=== PATIENT | female | born 1970 | race Caucasian/White ===

== ENCOUNTER 2019-05-02 12:16 | Emergency (ER) | payer MEDICAID ==
[2019-05-02] MEDS ORDERED: Ketorolac 30 MG/ML SDV IM ONE (13:07)
[2019-05-02] MEDS ORDERED: Orphenadrine 100 MG Tab.ER PO ONE (13:07)
--- NOTE | 2019-05-02 13:12 | EDM.PDOC ---
ED HPI GENERAL MEDICAL PROBLEM - General Chief Complaint: Back Pain or Injury Stated Complaint: BACK PAIN Time Seen by Provider: 05/02/19 12:31 Source of Information: Reports: Patient, RN Notes Reviewed History Limitations: Reports: No Limitations - History of Present Illness INITIAL COMMENTS - FREE TEXT/NARRATIVE: Patient is a 48-year-old female who presents to the ED for the evaluation of a lower back injury. The patient notes a prior history of multiple sclerosis and fibromyalgia, so she states she has pain most often all the time. She states shortly prior to arrival that she stepped in some mud, and went to step up on the sidewalk and ended up slipping on the sidewalk due to the mud on her shoes. She states that she felt instant pain that jolted up the right side of her body. She states that a bystander said it looked as if she was doing the splits. The patient states that most of her pain now is into her right lower back just above her hip. She denies any history of chronic back pain. She would rate her pain at a 5 out of 10, and characterizes more as a dull/negative he type of pain. She did not take any type of pain medications to see if anything helped. The pain does not radiate down her leg at all, it stays right in her hip area. Middle Back Pain Score (Numeric/FACES): 8 - Related Data Allergies Allergy/AdvReac Type Severity Reaction Status Date / Time acetaminophen [From Vicodin] Allergy Chest Pain Verified 05/02/19 12:37 hydrocodone [From Vicodin] Allergy Chest Pain Verified 05/02/19 12:37 Home Meds: Home Meds Gabapentin [Neurontin] 300 mg PO DAILY 05/02/19 [History] Insulin Glarg,Human.Rec.Analog [Lantus] 0 unit SUBCUT DAILY 05/02/19 [History] Orphenadrine [Norflex] 100 mg PO BID PRN #20 tab 05/02/19 [Rx] atorvaSTATin [Lipitor] 10 mg PO BEDTIME 05/02/19 [History] metFORMIN [Glucophage XR] 500 mg PO BIDMEALS 05/02/19 [History] Past Medical History Cardiovascular History: Reports: High Cholesterol, Hypertension Musculoskeletal History: Reports: Fibromyalgia Neurological History: Reports: MS Endocrine/Metabolic History: Reports: Diabetes, Type II Social & Family History - Tobacco Use Smoking Status *Q: Current Every Day Smoker Years of Tobacco use: 40 Packs/Tins Daily: 0.5 - Recreational Drug Use Recreational Drug Use: No ED ROS GENERAL - Review of Systems Review Of Systems: See Below Constitutional: Reports: No Symptoms HEENT: Reports: No Symptoms Respiratory: Reports: No Symptoms Cardiovascular: Reports: No Symptoms Endocrine: Reports: No Symptoms GI/Abdominal: Reports: No Symptoms : Reports: No Symptoms Musculoskeletal: Reports: Back Pain (Right lower back, near hip) Skin: Reports: No Symptoms Neurological: Reports: No Symptoms Psychiatric: Reports: No Symptoms Hematologic/Lymphatic: Reports: No Symptoms Immunologic: Reports: No Symptoms ED EXAM,LOWER BACK PAIN/INJURY - Physical Exam Exam: See Below Exam Limited By: No Limitations General Appearance: Alert, WD/WN, No Apparent Distress Ears: Normal External Exam Nose: Normal Inspection Throat/Mouth: Normal Inspection, Normal Lips, Normal Teeth, Normal Gums, Normal Oropharynx, Normal Voice, No Airway Compromise Head: Atraumatic, Normocephalic Neck: Normal Inspection, Supple, Non-Tender, Full Range of Motion Respiratory/Chest: No Respiratory Distress, Lungs Clear, Normal Breath Sounds, No Accessory Muscle Use, Chest Non-Tender Cardiovascular: Normal Peripheral Pulses, Regular Rate, Rhythm, No Murmur Back Exam: Normal Inspection, Muscle Spasm (Right lower back, just above iliac crest) Extremities: Normal Inspection, Normal Range of Motion, Normal Capillary Refill Neurological: Alert, Normal Mood/Affect, Normal Dorsiflexion, Normal Plantar Flexion, Normal Gait, Oriented x 3 Psychiatric: Normal Affect, Normal Mood Skin Exam: Warm, Dry, Intact, Normal Color, No Rash Course - Vital Signs Last Recorded V/S: Last Vital Signs Temp 98.8 F 05/02/19 12:35 Pulse 92 05/02/19 12:35 Resp 16 05/02/19 12:35 BP 155/96 H 05/02/19 12:35 Pulse Ox 97 05/02/19 12:35 - Orders/Labs/Meds Meds: Medications Discontinued Medications Generic Name Dose Route Start Last Admin Trade Name Freq PRN Reason Stop Dose Admin Ketorolac Tromethamine 30 mg 05/02/19 13:07 05/02/19 13:14 Toradol IM 05/02/19 13:08 30 mg ONETIME ONE Administration Orphenadrine Citrate 100 mg 05/02/19 13:07 05/02/19 13:14 Norflex PO 05/02/19 13:08 100 mg ONETIME ONE Administration - Re-Assessments/Exams Free Text/Narrative Re-Assessment/Exam: 05/02/19 13:12 Patient presents to the ED for the evaluation of a back injury. Have ordered 30 mg IM Toradol, and 100 mg PO Norflex for initial management, I did offer to do an x-ray to make sure there was no further musculoskeletal injury, however the patient declined at this time. 05/02/19 13:47 Patient was reassessed at bedside, and states that she feels much better. She has got more range of motion movement after the Norflex and Toradol. We'll discharge home with general recommendations and a prescription for a few tablets of Norflex. Departure - Departure Time of Disposition: 13:48 Disposition: Home, Self-Care 01 Condition: Fair Clinical Impression: Lower back pain Qualifiers: Chronicity: acute Back pain laterality: right Sciatica presence: without sciatica Qualified Code(s): M54.5 - Low back pain - Discharge Information *PRESCRIPTION DRUG MONITORING PROGRAM REVIEWED*: No *COPY OF PRESCRIPTION DRUG MONITORING REPORT IN PATIENT SUNNY: No Prescriptions: Orphenadrine [Norflex] 100 mg PO BID PRN #20 tab PRN Reason: Spasms Instructions: Muscle Strain, [id number] Referrals: Cyndie Jones MD [Primary Care Provider] - Forms: ED Department Discharge Additional Instructions: You have been evaluated in the ED for your right sided back pain. Please use ice/heat as tolerated to the affected area. You may take tylenol 500 mg or ibuprofen 600mg q6 hrs for pain relief. Please do so until you have a tolerable level of pain with activity. Do not exceed 4000mg tylenol, Do not exceed 3200mg ibuprofen in a 24 hour time period. You have been given a prescription for Norflex, a muscle relaxer, please take 1 tab by mouth Q12 hours as needed for muscle spasms. This has been electronically sent to the [facility] located near [facility]. Please return to ED if your symptoms should change or worsen.
== END 2019-05-02 13:59 | disposition home or self-care (01) ==
LOC: JD.ED 12:16
DX: M54.5 Low back pain (principal); E78.00 Pure hypercholesterolemia, unspecified; I10 Essential (primary) hypertension; E11.9 Type 2 diabetes mellitus without complications; F17.210 Nicotine dependence, cigarettes, uncomplicated; Z88.5 Allergy status to narcotic agent; Z88.8 Allergy status to other drugs, medicaments and biological substances; Z79.899 Other long term (current) drug therapy; Z79.4 Long term (current) use of insulin
CPT/HCPCS: 96372; 99283; A9270; J1885

== ENCOUNTER 2019-07-19 20:39 | Emergency (ER) | payer MEDICAID ==
--- NOTE | 2019-07-19 22:51 | EDM.PDOC ---
ED HPI GENERAL MEDICAL PROBLEM - General Chief Complaint: Lower Extremity Injury/Pain Stated Complaint: TOE REMOVED N RIGHT FOOT IN PAIN Time Seen by Provider: 07/19/19 22:14 Source of Information: Reports: Patient History Limitations: Reports: No Limitations - History of Present Illness INITIAL COMMENTS - FREE TEXT/NARRATIVE: Patient is a 48-year-old female diabetic who recently had her toenail resected this past by Dr. Chacon. There was no complications. Over the past 2 days patient has been using Percocet for pain management. Sunday the pain was controlled as well as today until approximately 1700 hrs. when she awoke from a nap. She describes the pain as a throbbing, sharp, pins/needle sensation. She's noticed some swelling to the adjacent toes and questions that the coband wrapped on the right great toe is too tight. There is no redness streaking up her foot. She's had no documented fever. Of note patient has been ambulating on the affected extremity as instructed by Dr. Chacon. No recent trauma or activity and precipitated worsening discomfort. Last took Percocet at 8:00 this evening. Right Toe-Hailux Pain Score (Numeric/FACES): 7 - Related Data Allergies Allergy/AdvReac Type Severity Reaction Status Date / Time acetaminophen [From Vicodin] Allergy Chest Pain Verified 06/08/19 16:25 hydrocodone [From Vicodin] Allergy Chest Pain Verified 06/08/19 16:25 Home Meds: Home Meds Gabapentin [Neurontin] 300 mg PO DAILY 05/02/19 [History] Insulin Glarg,Human.Rec.Analog [Lantus] 16 unit SUBCUT DAILY 05/02/19 [History] Orphenadrine [Norflex] 100 mg PO BID PRN #20 tab 05/02/19 [Rx] atorvaSTATin [Lipitor] 10 mg PO BEDTIME 05/02/19 [History] metFORMIN [Glucophage XR] 500 mg PO BIDMEALS 05/02/19 [History] oxyCODONE HCl/Acetaminophen [Percocet 5-325 mg Tablet] 1 tab PO Q6HR PRN [History] Past Medical History HEENT History: Reports: Impaired Vision Cardiovascular History: Reports: High Cholesterol, Hypertension 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: Reports: Asthma Musculoskeletal History: Reports: Fibromyalgia Neurological History: Reports: MS, Neuropathy, Peripheral Endocrine/Metabolic History: Reports: Diabetes, Type II - Infectious Disease History Infectious Disease History: Reports: Chicken Pox - Past Surgical History HEENT Surgical History: Reports: Tonsillectomy GI Surgical History: Reports: Appendectomy, Cholecystectomy Female Surgical History: Reports: Other (See Below) Other Female Surgeries/Procedures: uterine ablasion Social & Family History - Family History Family Medical History: Noncontributory - Tobacco Use Smoking Status *Q: Current Every Day Smoker Years of Tobacco use: 35 Packs/Tins Daily: 0.5 - Caffeine Use Caffeine Use: Reports: Coffee - Recreational Drug Use Recreational Drug Use: No Review of Systems - Review of Systems Review Of Systems: ROS reveals no pertinent complaints other than HPI. ED EXAM, GENERAL - Physical Exam Exam: See Below Exam Limited By: No Limitations General Appearance: Alert, WD/WN, No Apparent Distress Ears: Hearing Grossly Normal Nose: Normal Inspection Throat/Mouth: Normal Voice, No Airway Compromise Head: Atraumatic, Normocephalic Neck: Normal Inspection, Supple Respiratory/Chest: No Respiratory Distress, No Accessory Muscle Use Cardiovascular: Normal Peripheral Pulses, Regular Rate, Rhythm Peripheral Pulses: 2+: Posterior Tibial (L) Extremities: Other (Coban to the right great toe. Pain with palpation. Slight swelling noted to adjacent toes. No pain with flexion/extension of the great toe. No redness swelling to the foot. Dressing is dry. ) Neurological: Alert, Oriented, Normal Cognition, No Motor/Sensory Deficits Psychiatric: Normal Affect, Normal Mood Skin Exam: Warm, Dry, Intact, Normal Color Course - Vital Signs Last Recorded V/S: Last Vital Signs Temp 98 F 07/19/19 20:48 Pulse 75 07/19/19 20:48 Resp 25 H 07/19/19 20:48 BP 144/72 H 07/19/19 20:48 Pulse Ox 100 07/19/19 20:48 - Re-Assessments/Exams Free Text/Narrative Re-Assessment/Exam: Nursing staff will remove coban in hopes by doing so will resolve some of the patients pain. The dressing to the toenail will remain intact. Coban will be reapplied in looser fashion in hopes this will decrease her discomfort. 07/19/19 22:54 Reassessment, patient states the pain has drastically improved and tingling is gone with loosening coban. No concerns for infection present. She will be discharged home with instructions as documented. Return precautions discussed with the patient. Departure - Departure Time of Disposition: 22:55 Disposition: Home, Self-Care 01 Condition: Good Clinical Impression: Pain around toenail, right foot - Discharge Information Referrals: Gary Chacon II, TINA [Physician] - Forms: ED Department Discharge Additional Instructions: Coban dressing was loosened which eliminated the tingling to the toe and decreased the pain to the toe. Please elevate when able to reduce any swelling and pain. Continue to follow instructions provided to you by Dr. Chacon. Continue taking the Percocet as prescribed. Do not drive while taking the percocet. Return to the ED for any new or worsening symptoms.
== END 2019-07-19 23:10 | disposition home or self-care (01) ==
LOC: JD.ED 20:39
DX: M79.674 Pain in right toe(s) (principal); M79.671 Pain in right foot; E11.40 Type 2 diabetes mellitus with diabetic neuropathy, unspecified; I10 Essential (primary) hypertension; E78.00 Pure hypercholesterolemia, unspecified; F17.210 Nicotine dependence, cigarettes, uncomplicated; Z88.8 Allergy status to other drugs, medicaments and biological substances; Z79.4 Long term (current) use of insulin; Z90.49 Acquired absence of other specified parts of digestive tract; Z98.890 Other specified postprocedural states
CPT/HCPCS: 99283

== ENCOUNTER 2019-07-29 18:48 | Emergency (ER) | payer MEDICAID ==
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
== END 2019-07-29 20:06 | disposition home or self-care (01) ==
LOC: JD.ED 18:48
DX: J70.5 Respiratory conditions due to smoke inhalation (principal); I10 Essential (primary) hypertension; E11.42 Type 2 diabetes mellitus with diabetic polyneuropathy; E78.00 Pure hypercholesterolemia, unspecified; J45.909 Unspecified asthma, uncomplicated; E66.9 Obesity, unspecified; Z68.32 Body mass index [BMI] 32.0-32.9, adult; F17.210 Nicotine dependence, cigarettes, uncomplicated; Z88.6 Allergy status to analgesic agent; Z79.4 Long term (current) use of insulin; Z79.899 Other long term (current) drug therapy
CPT/HCPCS: 99282; 99284

== ENCOUNTER 2019-09-22 18:01 | Emergency (ER) | payer MEDICAID ==
[2019-09-22] MEDS ORDERED: HYDROmorphone 0.5 MG/0.5 ML Syringe IVPUSH ONE (18:48)
[2019-09-22] MEDS ORDERED: Sodium Chloride 0.9% 10 ML Syringe FLUSH PRN (18:48)
--- NOTE | 2019-09-22 18:49 | EDM.PDOC ---
ED HPI GENERAL MEDICAL PROBLEM - General Chief Complaint: Skin Complaint Stated Complaint: BURNING ACROSS TOP OF BACK Time Seen by Provider: 09/22/19 18:43 Source of Information: Reports: Patient, RN, RN Notes Reviewed, Significant Other History Limitations: Reports: No Limitations - History of Present Illness INITIAL COMMENTS - FREE TEXT/NARRATIVE: 48-year-old female presents to the ED today with severe right upper back pain. Patient reports that it started yesterday as a very dull pain and has increased in severity up until today. She reports the pain was so severe that she had to leave work. She reports the pain is itchy and has a burning sensation. She cannot put clothes over the lesion because of pain. There are 2 nodules noted which have been excoriated. She does report a history of varicella but has never had shingles. She's never had the shingles vaccine. She is actively crying in the room. She denies any respiratory symptoms. She reports she is on gabapentin for diabetic neuropathy. She is a diabetic. She has not taken anything [id number] or taken anything for treatment of this. She denies any respiratory or cardiac symptoms. 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 Right Upper Back Pain Score (Numeric/FACES): 10 - Related Data Allergies Allergy/AdvReac Type Severity Reaction Status Date / Time acetaminophen [From Vicodin] Allergy Chest Pain Verified 07/29/19 18:54 hydrocodone [From Vicodin] Allergy Chest Pain Verified 07/29/19 18:54 Home Meds: Home Meds Gabapentin [Neurontin] 300 mg PO TID 05/02/19 [History] Insulin Glarg,Human.Rec.Analog [Lantus] 20 unit SUBCUT DAILY 05/02/19 [History] Orphenadrine [Norflex] 100 mg PO BID PRN #20 tab 05/02/19 [Rx] atorvaSTATin [Lipitor] 10 mg PO BEDTIME 05/02/19 [History] metFORMIN [Glucophage XR] 500 mg PO BIDMEALS 05/02/19 [History] Albuterol Sulfate [Albuterol Sulfate Hfa] 1 inh INH DAILY 07/29/19 [History] Dapagliflozin Propanediol [Farxiga] 10 mg PO DAILY 07/29/19 [History] Losartan [Cozaar] 100 mg PO DAILY 07/29/19 [History] amLODIPine [Norvasc] 5 mg PO DAILY 07/29/19 [History] Acetaminophen/oxyCODONE [Percocet 325-5 MG] 1 - 2 each PO Q6HR PRN #25 tab 09/22 [Rx] valACYclovir [Valtrex] 1,000 mg PO TID #21 tablet 09/22/19 [Rx] Past Medical History HEENT History: Reports: Impaired Vision Cardiovascular History: Reports: High Cholesterol, Hypertension 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: Reports: 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 Musculoskeletal History: Reports: Fibromyalgia Neurological History: Reports: MS, Neuropathy, Peripheral Psychiatric History: Reports: None Endocrine/Metabolic History: Reports: Diabetes, Type II, Obesity/BMI 30+ Hematologic History: Reports: None Immunologic History: Reports: None Oncologic (Cancer) History: Reports: None Dermatologic History: Reports: None - Infectious Disease History Infectious Disease History: Reports: Chicken Pox - Past Surgical History Head Surgeries/Procedures: Reports: None HEENT Surgical History: Reports: Tonsillectomy GI Surgical History: Reports: Appendectomy, Cholecystectomy Female Surgical History: Reports: Other (See Below) Other Female Surgeries/Procedures: uterine ablasion Other Musculoskeletal Surgeries/Procedures:: Pt had right toenail removed. Social & Family History - Family History Family Medical History: Noncontributory - Tobacco Use Smoking Status *Q: Never Smoker - Caffeine Use Caffeine Use: Reports: Coffee, Soda, Tea - Recreational Drug Use Recreational Drug Use: No ED ROS GENERAL - Review of Systems Review Of Systems: See Below Constitutional: Denies: Fever, Chills, Malaise, Weakness, Fatigue HEENT: Reports: No Symptoms Respiratory: Reports: No Symptoms. Denies: Shortness of Breath, Wheezing, Cough , Sputum Cardiovascular: Reports: No Symptoms. Denies: Chest Pain, Dyspnea on Exertion Endocrine: Reports: No Symptoms GI/Abdominal: Reports: No Symptoms Skin: Reports: Other (deep burning sensation to right upper back which is pruritic) Neurological: Reports: No Symptoms ED EXAM, SKIN/RASH Exam: See Below Exam Limited By: No Limitations General Appearance: Alert, WD/WN, Moderate Distress Head: Atraumatic, Normocephalic Neck: Normal Inspection, Supple, Non-Tender, Full Range of Motion Respiratory/Chest: No Respiratory Distress, Lungs Clear, Normal Breath Sounds, No Accessory Muscle Use Cardiovascular: Normal Peripheral Pulses, Regular Rate, Rhythm, No Edema, No Gallop, No JVD, No Murmur, No Rub Peripheral Pulses: 4+: Radial (L), Radial (R), Dorsalis Pedis (L), Dorsalis Pedis (R) Back Exam: Normal Inspection, Full Range of Motion, Other (severe pain on right side of back. 2 smaller lesions noted on right upper back which appear excoriated.) Extremities: Normal Inspection, Normal Range of Motion, Non-Tender, No Pedal Edema, Normal Capillary Refill Neurological: Alert, Oriented, CN II-XII Intact, Normal Cognition, Normal Gait, Normal Reflexes, No Motor/Sensory Deficits Psychiatric: Tearful Skin: Warm, Dry, Intact, Normal Color, No Rash, Excoriations (2 areas ) EKG INTERPRETATION EKG Date: 09/22/19 Time: 19:10 Rhythm: NSR Rate (Beats/Min): 83 P-Wave: Present QRS: Normal ST-T: Normal QT: Normal EKG Interpretation Comments: Sinus rhythm probable lateral infarct, old robable anterior septal infarct, old Reviewed by myself and Dr. Payne Course - Vital Signs Last Recorded V/S: Last Vital Signs Temp 98.7 F 09/22/19 18:11 Pulse 106 H 09/22/19 18:11 Resp 20 09/22/19 18:11 BP 188/109 H 09/22/19 18:11 Pulse Ox 98 09/22/19 18:11 - Orders/Labs/Meds Orders: Active Orders 24 hr Category Date Time Status EKG 12 Lead [EKG Documentation Completion] [RC] STAT Care 09/22/19 18:47 Active CXR [Chest 2V] [CR] Routine Exams 09/22/19 18:46 Taken Sodium Chloride 0.9% [Saline Flush] Med 09/22/19 18:48 Active 10 ml FLUSH ASDIRECTED PRN Isolation [COMM] Routine Oth 09/22/19 19:06 Ordered Saline Lock Insert [OM.PC] Routine Oth 09/22/19 18:48 Ordered Medication Orders Sodium Chloride (Saline Flush) 10 ml FLUSH ASDIRECTED PRN PRN Reason: Keep Vein Open Last Admin: 09/22/19 19:15 Dose: 10 ml Labs: Laboratory Tests 1109/22/19 09/22/19 Range/Units 19:10 19:10 19:10 WBC 16.61 H (3.98-10.04) K/mm3 RBC 5.75 H (3.98-5.22) M/mm3 Hgb 16.3 H (11.2-15.7) gm/dl Hct 48.1 H (34.1-44.9) % MCV 83.7 (79.4-94.8) fl MCH 28.3 (25.6-32.2) pg MCHC 33.9 (32.2-35.5) g/dl RDW Std Deviation 42.8 (36.4-46.3) fL Plt Count 355 (182-369) K/mm3 MPV 10.5 (9.4-12.3) fl Neut % (Auto) 66.4 (34.0-71.1) % Lymph % (Auto) 26.5 (19.3-51.7) % Bath % (Auto) 5.2 (4.7-12.5) % Eos % (Auto) 1.1 (0.7-5.8) Baso % (Auto) 0.3 (0.1-1.2) % Neut # (Auto) 11.04 H (1.56-6.13) K/mm3 Lymph # (Auto) 4.40 H (1.18-3.74) K/mm3 Bath # (Auto) 0.86 H (0.24-0.36) K/mm3 Eos # (Auto) 0.18 (0.04-0.36) K/mm3 Baso # (Auto) 0.05 (0.01-0.08) K/mm3 Manual Slide Review Normal smear D-Dimer, Quantitative < 0.19 L (0.19-0.50) mg/L Sodium 138 (136-145) mEq/L Potassium 3.9 (3.5-5.1) mEq/L Chloride 103 (98-107) mEq/L Carbon Dioxide 25 (21-32) mEq/L Anion Gap 13.9 (5-15) BUN 12 (7-18) mg/dL Creatinine 0.8 (0.55-1.02) mg/dL Est Cr Clr Drug Dosing 63.48 mL/min Estimated GFR (MDRD) > 60 (>60) mL/min BUN/Creatinine Ratio 15.0 (14-18) Glucose 166 H (74-106) mg/dL Calcium 10.7 H (8.5-10.1) mg/dL C-Reactive Protein 0.4 (<1.0) mg/dL Meds: Medications Generic Name Dose Route Start Last Admin Trade Name Aletha PRN Reason Stop Dose Admin Sodium Chloride 10 ml 09/22/19 18:48 09/22/19 19:15 Saline Flush FLUSH 10 ml ASDIRECTED PRN Administration Keep Vein Open Discontinued Medications Generic Name Dose Route Start Last Admin Trade Name Freq PRN Reason Stop Dose Admin Hydromorphone HCl 0.5 mg 09/22/19 18:48 09/22/19 19:15 Dilaudid IVPUSH 09/22/19 18:49 0.5 mg ONETIME ONE Administration - Re-Assessments/Exams Free Text/Narrative Re-Assessment/Exam: Discussed case with Dr. Payne, ED physician. He suggests to ensure something more sinister is not cause of symptoms. Will order 12-lead EKG, chest x-ray CBC , CMP, and d-dimer. We'll also order saline lock and give 0.5 mg Dilaudid IV push. 09/22/19 19:04 CBC returns with a WBC elevated at 16.91. Hemoglobin is high at 16.3 and RBCs high at 5.75. Recheck on patient shows she is much more comfortable after receiving the Dilaudid and somewhat sleepy. She reports she is doing okay. 09/22/19 19:[address] 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 Nothing acute noted. 09/22/19 19:59 Departure - Departure Time of Disposition: 20:27 Disposition: Home, Self-Care 01 Condition: Good Clinical Impression: Herpes zoster Qualifiers: Herpes zoster complications: without complications Qualified Code(s): B02.9 - Zoster without complications - Discharge Information *PRESCRIPTION DRUG MONITORING PROGRAM REVIEWED*: No *COPY OF PRESCRIPTION DRUG MONITORING REPORT IN PATIENT SUNNY: No Prescriptions: Acetaminophen/oxyCODONE [Percocet 325-5 MG] 1 - 2 each PO Q6HR PRN #25 tab PRN Reason: Pain valACYclovir [Valtrex] 1,000 mg PO TID #21 tablet Instructions: Shingles, [id number] Referrals: Cyndie Jones MD [Primary Care Provider] - Forms: ED Department Discharge Additional Instructions: You were seen today in the emergency room for severe right upper back pain. Your chest x-ray and 12-lead EKG were normal. Your labs showed an elevated white count which is likely from the pain and shingles infection. You was prescribed an antiviral as well as a pain medication. You should take this antiviral 3 times a day for 7 days total. You should take one to 2 Percocet as needed every 6 hours for pain. Be cautious as this medication can cause constipation. Do not drive while on this medication. Unfortunately, you will likely notice the rash gets worse before it gets better. Do not put any topical cream on your back. While the lesions are weeping fluid you are considered infectious. Avoid being around the elderly, immunocompromised, or children. Should symptoms worsen contact your primary care provider or return to the ED. Recommend you follow-up with Dr. Jones within 7 days or sooner if needed. - My Orders Last 24 Hours: My Active Orders 09/22/19 18:46 CXR [Chest 2V] [CR] Routine 09/22/19 18:47 EKG 12 Lead [EKG Documentation Completion] [RC] STAT 09/22/19 18:48 Sodium Chloride 0.9% [Saline Flush] 10 ml FLUSH ASDIRECTED PRN Saline Lock Insert [OM.PC] Routine 09/22/19 19:06 Isolation [COMM] Routine - Assessment/Plan Last 24 Hours: My Active Orders 09/22/19 18:46 CXR [Chest 2V] [CR] Routine 09/22/19 18:47 EKG 12 Lead [EKG Documentation Completion] [RC] STAT 09/22/19 18:48 Sodium Chloride 0.9% [Saline Flush] 10 ml FLUSH ASDIRECTED PRN Saline Lock Insert [OM.PC] Routine 09/22/19 19:06 Isolation [COMM] Routine
--- NOTE | 2019-09-23 07:39 | CR ---
Chest: Two views of the chest were obtained. Comparison: Prior chest x-ray of 06/30/19. Heart size and mediastinum are normal. Lungs are clear with no acute parenchymal change. Mild diffuse disc space narrowing is noted throughout the thoracic spine with mild scattered endplate osteophytes. Surgical clips are noted within the upper abdomen from prior cholecystectomy. Impression: 1. Degenerative change within the spine. 2. Nothing acute is seen on two-view chest x-ray. Diagnostic code #2
== END 2019-09-22 20:40 | disposition home or self-care (01) ==
LOC: JD.ED 18:01
DX: B02.9 Zoster without complications (principal); E78.00 Pure hypercholesterolemia, unspecified; I10 Essential (primary) hypertension; J45.909 Unspecified asthma, uncomplicated; E11.42 Type 2 diabetes mellitus with diabetic polyneuropathy; E66.9 Obesity, unspecified; Z68.32 Body mass index [BMI] 32.0-32.9, adult; Z79.4 Long term (current) use of insulin; Z79.899 Other long term (current) drug therapy; Z88.5 Allergy status to narcotic agent; Z88.6 Allergy status to analgesic agent
CPT/HCPCS: 36415; 71046; 80048; 85025; 85379; 86140; 93005; 96374; 99284; J1170; 93010; 99283

== ENCOUNTER 2019-11-17 12:46 | Emergency (ER) | payer MEDICAID, OTHER | END 2019-11-17 13:00 | disposition left against medical advice (07) | LOC: JD.ED 12:46 | DX: Z53.21 Procedure and treatment not carried out due to patient leaving prior to being seen by health care provider (principal) ==

== ENCOUNTER 2019-11-17 15:57 | Emergency (ER) | payer MEDICAID, OTHER ==
[2019-11-17] MEDS ORDERED: Codeine/Promethazine 10-6.25 MG/5 ML Syrup 5 ML UD Cup PO ONE (16:29)
[2019-11-17] MEDS ORDERED: Albuterol/Ipratropium 3.0-0.5 MG/3 ML Neb Soln NEB ONE (16:29)
--- NOTE | 2019-11-17 16:35 | EDM.PDOC ---
ED HPI GENERAL MEDICAL PROBLEM - General Chief Complaint: Respiratory Problem Stated Complaint: HURTS TO BREATHE Time Seen by Provider: 11/17/19 16:08 Source of Information: Reports: Patient History Limitations: Reports: No Limitations - History of Present Illness INITIAL COMMENTS - FREE TEXT/NARRATIVE: Patient is a 48-year-old female who presents with complaints of a low-grade fever, headache, dry cough, low-grade fever, congestion, throat pain, body aches , shortness of breath, and chest discomfort with coughing that started on Sunday. She states she did have some diarrhea yesterday but has not had any since then. Patient does have a history of asthma and has been using an albuterol inhaler which she states provides little relief. Only other medication she is used to treat the symptoms is DayQuil around noon today. She did have a flu vaccine this year. Bilateral Middle Chest Pain Score (Numeric/FACES): 7 - Related Data Allergies Allergy/AdvReac Type Severity Reaction Status Date / Time acetaminophen [From Vicodin] Allergy Chest Pain Verified 11/17/19 16:10 hydrocodone [From Vicodin] Allergy Chest Pain Verified 11/17/19 16:10 Home Meds: Home Meds Gabapentin [Neurontin] 300 mg PO TID 05/02/19 [History] Insulin Glarg,Human.Rec.Analog [Lantus] 20 unit SUBCUT DAILY 05/02/19 [History] Orphenadrine [Norflex] 100 mg PO BID PRN #20 tab 05/02/19 [Rx] atorvaSTATin [Lipitor] 10 mg PO BEDTIME 05/02/19 [History] metFORMIN [Glucophage XR] 500 mg PO BIDMEALS 05/02/19 [History] Albuterol Sulfate [Albuterol Sulfate Hfa] 1 inh INH DAILY 07/29/19 [History] Dapagliflozin Propanediol [Farxiga] 10 mg PO DAILY 07/29/19 [History] Losartan [Cozaar] 100 mg PO DAILY 07/29/19 [History] amLODIPine [Norvasc] 5 mg PO DAILY 07/29/19 [History] Acetaminophen/oxyCODONE [Percocet 325-5 MG] 1 - 2 each PO Q6HR PRN #25 tab 09/22 [Rx] Codeine/Promethazine [Phenergan with Codeine] 5 ml PO Q4HR PRN #120 ml 11/17/19 [Rx] Past Medical History HEENT History: Reports: Impaired Vision Cardiovascular History: Reports: High Cholesterol, Hypertension 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: Reports: 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 Musculoskeletal History: Reports: Fibromyalgia Neurological History: Reports: MS, Neuropathy, Peripheral Psychiatric History: Reports: None Endocrine/Metabolic History: Reports: Diabetes, Type II, Obesity/BMI 30+ Hematologic History: Reports: None Immunologic History: Reports: None Oncologic (Cancer) History: Reports: None Dermatologic History: Reports: None - Infectious Disease History Infectious Disease History: Reports: Chicken Pox, Shingles - Past Surgical History Head Surgeries/Procedures: Reports: None HEENT Surgical History: Reports: Tonsillectomy GI Surgical History: Reports: Appendectomy, Cholecystectomy Female Surgical History: Reports: Other (See Below) Other Female Surgeries/Procedures: uterine ablasion Other Musculoskeletal Surgeries/Procedures:: Pt had right toenail removed. Social & Family History - Family History Family Medical History: Noncontributory - Tobacco Use Smoking Status *Q: Current Every Day Smoker Years of Tobacco use: 30 Packs/Tins Daily: 0.3 - Caffeine Use Caffeine Use: Reports: Coffee, Energy Drinks, Soda, Tea - Recreational Drug Use Recreational Drug Use: No ED ROS GENERAL - Review of Systems Review Of Systems: See Below Constitutional: Reports: Fever, Chills, Decreased Appetite HEENT: Reports: Rhinitis, Throat Pain. Denies: Ear Pain Respiratory: Reports: Shortness of Breath, Pleuritic Chest Pain, Cough Cardiovascular: Reports: No Symptoms Endocrine: Reports: No Symptoms GI/Abdominal: Reports: No Symptoms, Diarrhea. Denies: Abdominal Pain, Nausea, Vomiting : Reports: No Symptoms Musculoskeletal: Reports: Other (Generalized body aches) Skin: Reports: No Symptoms. Denies: Rash Neurological: Reports: Headache. Denies: Confusion, Dizziness Psychiatric: Reports: No Symptoms Hematologic/Lymphatic: Reports: No Symptoms Immunologic: Reports: No Symptoms ED EXAM, GENERAL - Physical Exam Exam: See Below Exam Limited By: No Limitations General Appearance: Alert, WD/WN, Mild Distress Ears: Normal External Exam, Normal Canal, Hearing Grossly Normal, Normal TMs Nose: Normal Inspection, Normal Mucosa. No: Nasal Drainage Throat/Mouth: Normal Inspection, Normal Oropharynx, Normal Voice, No Airway Compromise Head: Atraumatic, Normocephalic Neck: Normal Inspection, Supple, Non-Tender, Full Range of Motion Respiratory/Chest: No Respiratory Distress, No Accessory Muscle Use, Chest Non- Tender, Wheezing (Faint expiratory throughout). No: Crackles, Rhonchi Cardiovascular: Normal Peripheral Pulses, Regular Rate, Rhythm, No Edema, No Murmur Neurological: Alert, Oriented, Normal Cognition, No Motor/Sensory Deficits Psychiatric: Normal Affect, Normal Mood Skin Exam: Warm, Dry, Intact, Normal Color, No Rash Lymphatic: No Adenopathy Course - Vital Signs Last Recorded V/S: Last Vital Signs Temp 98.7 F 11/17/19 16:07 Pulse 93 11/17/19 16:07 Resp 19 11/17/19 16:07 BP 143/63 H 11/17/19 17:25 Pulse Ox 95 11/17/19 16:29 - Orders/Labs/Meds Orders: Active Orders 24 hr Category Date Time Status RT Aerosol Therapy [RC] ASDIRECTED Care 11/17/19 16:29 Active Chest 2V [CR] Stat Exams 11/17/19 16:29 Taken Meds: Medications Discontinued Medications Generic Name Dose Route Start Last Admin Trade Name Kushq PRN Reason Stop Dose Admin Albuterol/Ipratropium 3 ml 11/17/19 16:29 11/17/19 16:48 Duoneb 3.0-0.5 Mg/3 Ml NEB 11/17/19 16:30 3 ml ONETIME ONE Administration Promethazine HCl/Codeine 5 ml 11/17/19 16:29 11/17/19 16:56 Phenergan With Codeine PO 11/17/19 16:30 5 ml ONETIME ONE Administration - Re-Assessments/Exams Free Text/Narrative Re-Assessment/Exam: Based on patient's symptoms and exam, I feel is likely she is suffering from a viral respiratory illness, possibly influenza. I will check a 2 view chest x- ray as well as an influenza screen. She is not used her albuterol inhaler since this morning and she does have some faint expiratory wheezes so I will give her a DuoNeb as well as a dose of Phenergan with codeine cough syrup. She denied the need for any medications for her headache at this time. She states if the cough gets better, her head wont bother her so much. 11/17/19 17:23 Patient's chest x-ray was normal. Influenza screen was negative. I did discuss with the patient that she likely has a viral respiratory infection. I will send a prescription for Phenergan with codeine for her. Recommend that she continue to use her albuterol inhaler that she has at home as needed. I will write her a note off from work through . Discharge instructions as noted Departure - Departure Time of Disposition: 17:24 Disposition: Home, Self-Care 01 Condition: Fair Clinical Impression: Viral respiratory infection - Discharge Information *PRESCRIPTION DRUG MONITORING PROGRAM REVIEWED*: No *COPY OF PRESCRIPTION DRUG MONITORING REPORT IN PATIENT SUNNY: No Prescriptions: Codeine/Promethazine [Phenergan with Codeine] 5 ml PO Q4HR PRN #120 ml PRN Reason: Cough Instructions: Viral Respiratory Infection, [id number] Referrals: PCP,None [Primary Care Provider] - Forms: ED Department Discharge, ED Return to Work/School Form Additional Instructions: You were seen in the emergency Department today for cough, body aches, chest discomfort and headache since Sunday. Your chest x-ray was normal and your influenza screen was negative. It's likely you are suffering from a viral respiratory infection. A prescription [place] been [place] to [place] [facility] in [facility] for Phenergan with codeine cough syrup. Use this as needed every 4 hours for cough symptoms. I do recommend that she use your albuterol inhaler as needed also. You may use [id number] Tylenol or ibuprofen for any fever or discomfort. An note has been provided off from work for you through this . If you experience any new or worsening symptoms, please do not hesitate to return to the emergency department or follow-up with her primary care provider. Sepsis Event Note - Evaluation Sepsis Screening Result: No Definite Risk - Focused Exam Vital Signs: Vital Signs Temp Pulse Resp BP Pulse Ox Pulse Ox 11/17/19 17:25 143/63 H 11/17/19 16:29 95 11/17/19 16:07 98.7 F 93 19 207/96 H 95 Date Exam was Performed: 11/17/19 Time Exam was Performed: 17:54 - My Orders Last 24 Hours: My Active Orders 11/17/19 16:29 RT Aerosol Therapy [RC] ASDIRECTED Chest 2V [CR] Stat - Assessment/Plan Last 24 Hours: My Active Orders 12/30/19 16:29 RT Aerosol Therapy [RC] ASDIRECTED Chest 2V [CR] Stat
--- NOTE | 2019-11-18 10:38 | CR ---
Chest: Two views of the chest were obtained. Comparison: Prior chest x-ray of 09/22/19. Heart size and mediastinum are normal. Lungs are clear. Mild disc space narrowing and endplate spurring is scattered within the spine. Surgical clips are seen from prior cholecystectomy. Impression: 1. Incidental findings. 2. Nothing acute is appreciated on two-view chest x-ray. Diagnostic code #2 This report was dictated in [place] Standard Time
== END 2019-11-17 18:00 | disposition home or self-care (01) ==
LOC: JD.ED 15:57
DX: J98.8 Other specified respiratory disorders (principal); I10 Essential (primary) hypertension; E11.42 Type 2 diabetes mellitus with diabetic polyneuropathy; E78.00 Pure hypercholesterolemia, unspecified; J45.909 Unspecified asthma, uncomplicated; E66.9 Obesity, unspecified; Z68.32 Body mass index [BMI] 32.0-32.9, adult; F17.210 Nicotine dependence, cigarettes, uncomplicated; Z88.5 Allergy status to narcotic agent; Z79.4 Long term (current) use of insulin; Z79.899 Other long term (current) drug therapy
CPT/HCPCS: 71046; 87804; 94640; 99284; A9270; 99283; J7620-GY

== ENCOUNTER 2019-11-21 09:53 | Emergency (ER) | payer MEDICAID ==
[2019-11-21] MEDS ORDERED: HYDROmorphone 0.5 MG/0.5 ML Syringe IVPUSH ONE (11:14)
[2019-11-21] MEDS ORDERED: Albuterol/Ipratropium 3.0-0.5 MG/3 ML Neb Soln NEB ONE (11:21)
[2019-11-21] MEDS ORDERED: predniSONE 20 MG Tab PO ONE (11:21)
[2019-11-21] MEDS ORDERED: Codeine/Promethazine 10-6.25 MG/5 ML Syrup 5 ML UD Cup PO ONE (11:22)
--- NOTE | 2019-11-21 11:29 | EDM.PDOC ---
ED HPI GENERAL MEDICAL PROBLEM - General Chief Complaint: Respiratory Problem Stated Complaint: SOB/COUGH Time Seen by Provider: 11/21/19 11:03 Source of Information: Reports: Patient, Old Records, RN Notes Reviewed History Limitations: Reports: No Limitations - History of Present Illness INITIAL COMMENTS - FREE TEXT/NARRATIVE: Patient a 48-year-old female who presents to the ED for the evaluation of ongoing cough and shortness of breath. Patient notes she was seen here on November 17, evaluated and sent home with some cough medications. She was tested for influenza, and had a chest x-ray done and everything was negative. She notes that since that visit she has not felt much subjective improvement. She states she is having difficulty catching her breath due to the coughing, she is not hypoxemic at this time, and her O2 sats around 99% on room air. She states that today however she was coughing so much that she vomited a little bit. She denies any ongoing nausea. She does note a history of asthma, and also relates that she is 1/2 pack/day smoker for 35 years, but she has not had a cigarette in a few days. She tried to talk to her regular doctor, Dr. Jones, but states they referred her to the ER for management. Patient notes she has been taking her inhalers as directed, but states they are not helping much. Last inhaler she took was around 9 AM this morning. She notes that she has had maybe a low-grade fever, but nothing that is overly bothersome. She notes that her symptoms have not changed much, but she states they have just not gotten much better either. Not having a productive cough, this is a dry hacking cough and her voice is now raspy. - Related Data Allergies Allergy/AdvReac Type Severity Reaction Status Date / Time acetaminophen [From Vicodin] Allergy Chest Pain Verified 11/21/19 10:03 hydrocodone [From Vicodin] Allergy Chest Pain Verified 11/21/19 10:03 Home Meds: Home Meds Gabapentin [Neurontin] 300 mg PO TID 05/02/19 [History] Insulin Glarg,Human.Rec.Analog [Lantus] 20 unit SUBCUT DAILY 05/02/19 [History] Orphenadrine [Norflex] 100 mg PO BID PRN #20 tab 05/02/19 [Rx] atorvaSTATin [Lipitor] 10 mg PO BEDTIME 05/02/19 [History] metFORMIN [Glucophage XR] 500 mg PO BIDMEALS 05/02/19 [History] Albuterol Sulfate [Albuterol Sulfate Hfa] 1 inh INH DAILY 07/29/19 [History] Dapagliflozin Propanediol [Farxiga] 10 mg PO DAILY 07/29/19 [History] Losartan [Cozaar] 100 mg PO DAILY 07/29/19 [History] amLODIPine [Norvasc] 5 mg PO DAILY 07/29/19 [History] Acetaminophen/oxyCODONE [Percocet 325-5 MG] 1 - 2 each PO Q6HR PRN #25 tab 09/22 [Rx] Codeine/Promethazine [Phenergan with Codeine] 5 ml PO Q4HR PRN #120 ml 11/17/19 [Rx] Albuterol/Ipratropium [DuoNeb 3.0-0.5 MG/3 ML] 3 ml INH QID #1 box 11/21/19 [Rx] Promethazine HCl/Codeine [Prometh-Codein 6.25-10 mg/5 ml] 5 ml PO Q4H PRN #60 ml 11/21/19 [Rx] predniSONE 20 mg PO ASDIRECTED #15 tab 11/21/19 [Rx] Past Medical History HEENT History: Reports: Impaired Vision Cardiovascular History: Reports: High Cholesterol, Hypertension 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: Reports: Asthma Musculoskeletal History: Reports: Fibromyalgia Neurological History: Reports: MS, Neuropathy, Peripheral Endocrine/Metabolic History: Reports: Diabetes, Type II, Obesity/BMI 30+ - Infectious Disease History Infectious Disease History: Reports: Chicken Pox - Past Surgical History HEENT Surgical History: Reports: Tonsillectomy GI Surgical History: Reports: Appendectomy, Cholecystectomy Female Surgical History: Reports: Other (See Below) Other Female Surgeries/Procedures: uterine ablasion Other Musculoskeletal Surgeries/Procedures:: Pt had right toenail removed. Social & Family History - Family History Family Medical History: Noncontributory - Tobacco Use Smoking Status *Q: Current Every Day Smoker Years of Tobacco use: 35 Packs/Tins Daily: 0.5 - Caffeine Use Caffeine Use: Reports: Coffee - Recreational Drug Use Recreational Drug Use: No ED ROS GENERAL - Review of Systems Review Of Systems: See Below Constitutional: Reports: Fever (low grade). Denies: Chills, Decreased Appetite HEENT: Reports: Throat Pain (mild), Other (raspy voice d/t cough) Respiratory: Reports: Shortness of Breath, Cough. Denies: Wheezing, Sputum Cardiovascular: Denies: Chest Pain GI/Abdominal: Denies: Constipation, Diarrhea, Nausea, Vomiting Skin: Denies: Cyanosis Neurological: Denies: Headache ED EXAM, GENERAL - Physical Exam Exam: See Below Exam Limited By: No Limitations General Appearance: Alert, WD/WN, No Apparent Distress Eye Exam: Bilateral Eye: EOMI, Normal Inspection, Periorbital Changes Nose: Normal Inspection Throat/Mouth: Normal Inspection, Normal Lips, Normal Teeth, Normal Gums, Normal Oropharynx, Normal Voice, No Airway Compromise Head: Atraumatic, Normocephalic Neck: Normal Inspection, Supple, Non-Tender, Full Range of Motion Respiratory/Chest: No Respiratory Distress, Lungs Clear, No Accessory Muscle Use , Chest Non-Tender, Decreased Breath Sounds (diffuse bilaterally) Cardiovascular: Normal Peripheral Pulses, Regular Rate, Rhythm, No Murmur Peripheral Pulses: 3+: Radial (L), Radial (R) GI/Abdominal: Normal Bowel Sounds, Soft, Non-Tender, No Distention, No Mass Extremities: Normal Inspection, Normal Capillary Refill Neurological: Alert, Oriented, Normal Cognition, No Motor/Sensory Deficits Psychiatric: Normal Affect, Normal Mood Skin Exam: Warm, Dry, Intact, Normal Color, No Rash Course - Vital Signs Last Recorded V/S: Last Vital Signs Temp 96.7 F 11/21/19 10:01 Pulse 88 11/21/19 10:01 Resp 25 H 11/21/19 10:01 BP 104/58 L 11/21/19 10:01 Pulse Ox 99 11/21/19 10:01 - Orders/Labs/Meds Orders: Active Orders 24 hr Category Date Time Status RT Aerosol Therapy [RC] ASDIRECTED Care 11/21/19 11:21 Ordered Meds: Medications Discontinued Medications Generic Name Dose Route Start Last Admin Trade Name Freq PRN Reason Stop Dose Admin Albuterol/Ipratropium 3 ml 11/21/19 11:21 Duoneb 3.0-0.5 Mg/3 Ml NEB 11/21/19 11:22 ONETIME ONE Prednisone 40 mg 11/21/19 11:21 Prednisone PO 11/21/19 11:22 ONETIME ONE Promethazine HCl/Codeine 5 ml 11/21/19 11:22 Phenergan With Codeine PO 11/21/19 11:23 ONETIME ONE - Re-Assessments/Exams Free Text/Narrative Re-Assessment/Exam: 11/21/19 11:29 Patient presents to the ED for ongoing cough and shortness of breath. At this time her symptoms have not changed much, but have not gotten much better. She states that she did get minor relief from the coughing with the codeine cough medicine, I will repeat the DuoNeb at today's visit, give her 40 mg p.o. prednisone, and repeat 5 mL's of the codeine cough syrup. Plan is to send her home with a neb compressor and supplies so she may do nebulizers at home, a prednisone burst for management of her illness due to asthma and likely suspected COPD due to her smoking history. Also she will get a refill of the cough medication. Departure - Departure Time of Disposition: 11:30 Disposition: Home, Self-Care 01 Condition: Fair Clinical Impression: Exacerbation of asthma Qualifiers: Asthma severity: mild Asthma persistence: unspecified Qualified Code(s): J45.901 - Unspecified asthma with (acute) exacerbation - Discharge Information *PRESCRIPTION DRUG MONITORING PROGRAM REVIEWED*: Yes *COPY OF PRESCRIPTION DRUG MONITORING REPORT IN PATIENT SUNNY: No Instructions: Asthma, Adult, [id number] Referrals: Cyndie Jones MD [Primary Care Provider] - Forms: ED Department Discharge, ED Return to Work/School Form Additional Instructions: You were evaluated in the ER today regarding your ongoing cough and shortness of breath. A nebulizer was repeated today, you were given some cough medicine also started on oral steroids. You will be given prescriptions for all of these medications , recommend you take the lasers up to 4 times daily for the next few days, and then you can taper to 3 times daily after the next few, then twice daily, and so forth until you need them every 4 hours as needed. Prednisone you will need to take as directed until it is gone. Cough medicine is for use at night and for when the coughing is out of hand. You were given a paper prescription for nebulizer compressor and supplies, [facility] to [facility] to obtain this to use your nebulizer. Please return to the ER if your symptoms change or worsen. Sepsis Event Note - Evaluation Sepsis Screening Result: No Definite Risk - Focused Exam Vital Signs: Vital Signs Temp Pulse Resp BP Pulse Ox 11/21/19 10:01 96.7 F 88 25 H 104/58 L 99 Date Exam was Performed: 11/21/19 Time Exam was Performed: 11:23 - My Orders Last 24 Hours: My Active Orders 11/21/19 11:21 RT Aerosol Therapy [RC] ASDIRECTED - Assessment/Plan Last 24 Hours: My Active Orders 11/21/19 11:21 RT Aerosol Therapy [RC] ASDIRECTED
== END 2019-11-21 12:35 | disposition home or self-care (01) ==
LOC: JD.ED 09:53
DX: J45.901 Unspecified asthma with (acute) exacerbation (principal); I10 Essential (primary) hypertension; E78.00 Pure hypercholesterolemia, unspecified; E11.42 Type 2 diabetes mellitus with diabetic polyneuropathy; E66.9 Obesity, unspecified; F17.210 Nicotine dependence, cigarettes, uncomplicated; Z88.6 Allergy status to analgesic agent; Z79.4 Long term (current) use of insulin; Z79.899 Other long term (current) drug therapy; Z68.32 Body mass index [BMI] 32.0-32.9, adult
CPT/HCPCS: 94640; 99284; A9270; 99283; J7620-GY

== ENCOUNTER 2019-12-19 08:48 | Emergency (ER) | payer MEDICAID, OTHER ==
[2019-12-19] MEDS ORDERED: Ibuprofen 600 MG Tab PO ONE (09:20)
--- NOTE | 2019-12-19 09:35 | EDM.PDOC ---
ED HPI GENERAL MEDICAL PROBLEM - General Chief Complaint: Back Pain or Injury Stated Complaint: FALL/BACK AND LEG PAIN Time Seen by Provider: 12/19/19 09:10 Source of Information: Reports: Patient History Limitations: Reports: No Limitations - History of Present Illness INITIAL COMMENTS - FREE TEXT/NARRATIVE: The patient presents with low back pain. She said about an hour ago she slipped and fell on the ice and landed on her buttocks and hurt her low back. She has pain to both sides but more pain on the right side with some pain shooting down her right leg. She did not hit her head or hurt her neck. She has no other injuries. She has no bowel or bladder problems. Onset: Sudden Duration: Hour(s): (1) Location: Reports: Back Quality: Reports: Sharp Severity: Severe Improves with: Reports: Immobilization Worsens with: Reports: Movement Context: Reports: Trauma (slipped and fell on the ice) Associated Symptoms: Reports: No Other Symptoms Lower Back Pain Score (Numeric/FACES): 5 - Related Data Allergies Allergy/AdvReac Type Severity Reaction Status Date / Time acetaminophen [From Vicodin] Allergy Chest Pain Verified 11/21/19 10:03 hydrocodone [From Vicodin] Allergy Chest Pain Verified 11/21/19 10:03 Home Meds: Home Meds Gabapentin [Neurontin] 300 mg PO TID 05/02/19 [History] Insulin Glarg,Human.Rec.Analog [Lantus] 20 unit SUBCUT DAILY 05/02/19 [History] Orphenadrine [Norflex] 100 mg PO BID PRN #20 tab 05/02/19 [Rx] atorvaSTATin [Lipitor] 10 mg PO BEDTIME 05/02/19 [History] metFORMIN [Glucophage XR] 500 mg PO BIDMEALS 05/02/19 [History] Albuterol Sulfate [Albuterol Sulfate Hfa] 1 inh INH DAILY 07/29/19 [History] Dapagliflozin Propanediol [Farxiga] 10 mg PO DAILY 07/29/19 [History] Losartan [Cozaar] 100 mg PO DAILY 07/29/19 [History] amLODIPine [Norvasc] 5 mg PO DAILY 07/29/19 [History] Acetaminophen/oxyCODONE [Percocet 325-5 MG] 1 - 2 each PO Q6HR PRN #25 tab 09/22 [Rx] Codeine/Promethazine [Phenergan with Codeine] 5 ml PO Q4HR PRN #120 ml 11/17/19 [Rx] Albuterol/Ipratropium [DuoNeb 3.0-0.5 MG/3 ML] 3 ml INH QID #1 box 11/21/19 [Rx] Promethazine HCl/Codeine [Prometh-Codein 6.25-10 mg/5 ml] 5 ml PO Q4H PRN #60 ml 11/21/19 [Rx] predniSONE 20 mg PO ASDIRECTED #15 tab 11/21/19 [Rx] Cyclobenzaprine [Flexeril] 10 mg PO TID PRN #20 tab 12/19/19 [Rx] Naproxen [Naprosyn] 500 mg PO Q12HR PRN #30 tab 12/19/19 [Rx] Past Medical History HEENT History: Reports: Impaired Vision Cardiovascular History: Reports: High Cholesterol, Hypertension 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: Reports: Asthma Genitourinary History: Reports: Renal Calculus [employer] LEAD History: Reports: None Musculoskeletal History: Reports: Fibromyalgia Neurological History: Reports: MS, Neuropathy, Peripheral Psychiatric History: Reports: Depression Endocrine/Metabolic History: Reports: Diabetes, Type II, Obesity/BMI 30+ Hematologic History: Reports: None Immunologic History: Reports: None Oncologic (Cancer) History: Reports: None Dermatologic History: Reports: None - Infectious Disease History Infectious Disease History: Reports: Chicken Pox, Shingles - Past Surgical History Head Surgeries/Procedures: Reports: None HEENT Surgical History: Reports: Tonsillectomy GI Surgical History: Reports: Appendectomy, Cholecystectomy Female Surgical History: Reports: Other (See Below) Other Female Surgeries/Procedures: uterine ablasion Other Musculoskeletal Surgeries/Procedures:: Pt had right toenail removed. Social & Family History - Family History Family Medical History: Noncontributory - Tobacco Use Smoking Status *Q: Current Every Day Smoker Years of Tobacco use: 35 Packs/Tins Daily: 0.5 Second Hand Smoke Exposure: Yes - Caffeine Use Caffeine Use: Reports: Coffee - Recreational Drug Use Recreational Drug Use: No ED ROS GENERAL - Review of Systems Review Of Systems: See Below Constitutional: Reports: No Symptoms HEENT: Reports: No Symptoms Respiratory: Reports: No Symptoms Cardiovascular: Reports: No Symptoms Endocrine: Reports: No Symptoms GI/Abdominal: Reports: No Symptoms : Reports: No Symptoms Musculoskeletal: Reports: Back Pain (lower back) ED EXAM,LOWER BACK PAIN/INJURY - Physical Exam Exam: See Below Exam Limited By: No Limitations General Appearance: Alert, No Apparent Distress Ears: Normal External Exam Nose: Normal Inspection Head: Atraumatic, Normocephalic Neck: Normal Inspection Respiratory/Chest: No Respiratory Distress, Lungs Clear, Normal Breath Sounds Cardiovascular: Regular Rate, Rhythm, No Edema, No Murmur GI/Abdominal: Soft, Non-Tender, No Organomegaly, No Mass Back Exam: Other (Pain upon palpation to the low back with more on the right side.) Extremities: Other (Pain shoots down her right leg) Course - Vital Signs Last Recorded V/S: Last Vital Signs Temp 98.1 F 12/19/19 09:08 Pulse 76 12/19/19 09:31 Resp 20 12/19/19 09:08 BP 138/92 H 12/19/19 09:31 Pulse Ox 97 12/19/19 09:31 - Orders/Labs/Meds Orders: Active Orders 24 hr Category Date Time Status Lumbar Spine 2 or 3V [CR] Stat Exams 12/19/19 09:19 Taken Meds: Medications Discontinued Medications Generic Name Dose Route Start Last Admin Trade Name Aletha PRN Reason Stop Dose Admin Ibuprofen 600 mg 12/19/19 09:20 12/19/19 09:26 Motrin PO 12/19/19 09:21 600 mg ONETIME ONE Administration - Re-Assessments/Exams Free Text/Narrative Re-Assessment/Exam: 12/19/19 09:35 I ordered an x-ray of her back on some motrin 600mg PO. 12/19/19 10:04 The x-ray looks good. I will get her on some flexeril and naprosyn. Departure - Departure Time of Disposition: 10:05 Disposition: Home, Self-Care 01 Condition: Good Clinical Impression: Fall Qualifiers: Encounter type: initial encounter Qualified Code(s): W19.XXXA - Unspecified fall, initial encounter Low back pain Qualifiers: Chronicity: acute Back pain laterality: right Sciatica presence: without sciatica Qualified Code(s): M54.5 - Low back pain - Discharge Information *PRESCRIPTION DRUG MONITORING PROGRAM REVIEWED*: No *COPY OF PRESCRIPTION DRUG MONITORING REPORT IN PATIENT SUNNY: No Prescriptions: Naproxen [Naprosyn] 500 mg PO Q12HR PRN #30 tab PRN Reason: Pain Cyclobenzaprine [Flexeril] 10 mg PO TID PRN #20 tab PRN Reason: Pain Referrals: Cyndie Jones MD [Primary Care Provider] - 1 Week Forms: ED Department Discharge, ED Return to Work/School Form Additional Instructions: Take the naprosyn and flexeril as needed for pain. Ice your back for 15 minutes 3 times per day for 2 days. Please return if you are worse. Sepsis Event Note - Evaluation Sepsis Screening Result: No Definite Risk - Focused Exam Vital Signs: Vital Signs Temp Pulse Resp BP Pulse Ox 12/19/19 09:31 76 138/92 H 97 12/19/19 09:08 98.1 F 100 20 153/83 H 100 Date Exam was Performed: 12/19/19 Time Exam was Performed: 10:04 - My Orders Last 24 Hours: My Active Orders 12/19/19 09:19 Lumbar Spine 2 or 3V [CR] Stat - Assessment/Plan Last 24 Hours: My Active Orders 12/19/19 09:19 Lumbar Spine 2 or 3V [CR] Stat
--- NOTE | 2019-12-19 10:29 | CR ---
Lumbar spine: AP and lateral views of the lumbar spine were obtained. Comparison: No previous lumbar spine study. Mild disc space narrowing is noted at L1-L2. Schmorl's node deformities are seen within L2, L3 and L4. Scattered anterior endplate osteophytes are noted at L1-L2 through L4-L5. Pedicles are intact. Transverse and spinous processes are intact. Sacroiliac joints appear within normal limits. No fracture or subluxation is seen. Prior cholecystectomy is noted. Impression: 1. Mild degenerative change. 2. Nothing acute is appreciated on two-view lumbar spine study. Diagnostic code #2 This report was dictated in [place] Standard Time
== END 2019-12-19 10:17 | disposition home or self-care (01) ==
LOC: JD.ED 08:48
DX: M54.5 Low back pain (principal); E78.00 Pure hypercholesterolemia, unspecified; I10 Essential (primary) hypertension; J45.909 Unspecified asthma, uncomplicated; E11.42 Type 2 diabetes mellitus with diabetic polyneuropathy; F17.210 Nicotine dependence, cigarettes, uncomplicated; E66.9 Obesity, unspecified; Z68.32 Body mass index [BMI] 32.0-32.9, adult; Z88.6 Allergy status to analgesic agent; Z88.5 Allergy status to narcotic agent; Z79.4 Long term (current) use of insulin; Z79.52 Long term (current) use of systemic steroids; Z79.899 Other long term (current) drug therapy; W00.0XXA Fall on same level due to ice and snow, initial encounter
CPT/HCPCS: 72100; 99283; A9270

== ENCOUNTER 2020-01-17 16:28 | Emergency (ER) | payer MEDICAID ==
[2020-01-17] MEDS ORDERED: Ketorolac 60 MG/2 ML SDV IM ONE (16:49)
[2020-01-17] MEDS ORDERED: Ondansetron 4 MG Tab.DIS PO ONE (16:49)
[2020-01-17] MEDS ORDERED: diphenhydrAMINE 50 MG/ML SDV IM ONE (16:49)
[2020-01-17] MEDS ORDERED: Ketorolac 60 MG/2 ML SDV ONE (17:06)
[2020-01-17] MEDS ORDERED: diphenhydrAMINE 50 MG/ML SDV ONE (17:06)
--- NOTE | 2020-01-17 17:24 | EDM.PDOC ---
ED HPI GENERAL MEDICAL PROBLEM - General Chief Complaint: Headache Stated Complaint: HEADACHE Time Seen by Provider: 01/17/20 16:30 Source of Information: Reports: Patient History Limitations: Reports: No Limitations - History of Present Illness INITIAL COMMENTS - FREE TEXT/NARRATIVE: Cammy is a 49 year old female who presents today for a headache. Reports she worked until 2am last night. Slept until noon. States the headache started gradually after waking around noon. it did not wake her from sleep. Reports the headache is to the left side. No fevers, chills or vomiting. States she is nauseated. Reports chronic numbness and tingling from neuropathy, no change from baseline. No recent trauma. Gets headaches about 2-3 times a year which requires an ER visit. states this feels similar. Is no on medications for headaches nor does she she a neurologist. states this feels similar to previous headaches. Left Headache Pain Score (Numeric/FACES): 6 - Related Data Allergies Allergy/AdvReac Type Severity Reaction Status Date / Time acetaminophen [From Vicodin] Allergy Chest Pain Verified 11/21/19 10:03 hydrocodone [From Vicodin] Allergy Chest Pain Verified 11/21/19 10:03 Home Meds: Home Meds Gabapentin [Neurontin] 300 mg PO TID 05/02/19 [History] Insulin Glarg,Human.Rec.Analog [Lantus] 20 unit SUBCUT BEDTIME 05/02/19 [History ] Orphenadrine [Norflex] 100 mg PO BID PRN #20 tab 05/02/19 [Rx] atorvaSTATin [Lipitor] 10 mg PO BEDTIME 05/02/19 [History] metFORMIN [Glucophage XR] 500 mg PO BIDMEALS 05/02/19 [History] Albuterol Sulfate [Albuterol Sulfate Hfa] 1 inh INH DAILY 07/29/19 [History] Dapagliflozin Propanediol [Farxiga] 10 mg PO DAILY 07/29/19 [History] Losartan [Cozaar] 100 mg PO DAILY 07/29/19 [History] amLODIPine [Norvasc] 5 mg PO DAILY 07/29/19 [History] Albuterol/Ipratropium [DuoNeb 3.0-0.5 MG/3 ML] 3 ml INH QID #1 box 11/21/19 [Rx] Naproxen [Naprosyn] 500 mg PO Q12HR PRN #30 tab 12/19/19 [Rx] Empagliflozin [Jardiance] 25 mg PO DAILY 01/17/20 [History] Past Medical History HEENT History: Reports: Impaired Vision Cardiovascular History: Reports: High Cholesterol, Hypertension 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: Reports: Asthma Genitourinary History: Reports: Renal Calculus [employer] INFORMATION ARCHITECT History: Reports: None Musculoskeletal History: Reports: Fibromyalgia Neurological History: Reports: MS, Neuropathy, Peripheral Psychiatric History: Reports: Depression Endocrine/Metabolic History: Reports: Diabetes, Type II, Obesity/BMI 30+ Hematologic History: Reports: None Immunologic History: Reports: None Oncologic (Cancer) History: Reports: None Dermatologic History: Reports: None - Infectious Disease History Infectious Disease History: Reports: Chicken Pox, Shingles - Past Surgical History Head Surgeries/Procedures: Reports: None HEENT Surgical History: Reports: Tonsillectomy GI Surgical History: Reports: Appendectomy, Cholecystectomy Female Surgical History: Reports: Other (See Below) Other Female Surgeries/Procedures: uterine ablasion Other Musculoskeletal Surgeries/Procedures:: Pt had right toenail removed. Social & Family History - Family History Family Medical History: Noncontributory - Caffeine Use Caffeine Use: Reports: Coffee ED ROS GENERAL - Review of Systems Review Of Systems: See Below Constitutional: Denies: Fever, Chills GI/Abdominal: Reports: Nausea. Denies: Vomiting Neurological: Reports: Headache, Numbness (chronic, no change), Tingling ( chronic, no change). Denies: Dizziness, Syncope - Physical Exam Exam: See Below Exam Limited By: No Limitations General Appearance: Alert, WD/WN, No Apparent Distress Eye Exam: Bilateral Eye: EOMI, Normal Inspection, PERRL Ears: Normal External Exam, Normal Canal, Hearing Grossly Normal, Normal TMs Nose: Normal Inspection Throat/Mouth: Normal Inspection, Normal Lips, Normal Voice, No Airway Compromise Head Exam: Atraumatic, Normocephalic Neck: Normal Inspection, Supple, Non-Tender, Full Range of Motion Respiratory/Chest: No Respiratory Distress, Lungs Clear, Normal Breath Sounds Cardiovascular: Normal Peripheral Pulses, Regular Rate, Rhythm, No Murmur Neuro Exam (Abbreviated): Alert, Oriented, Normal Cognition, Normal Gait, Other (staff 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, dorsiflexion and plantarflexion 5/5 bilaterally; normal finger to nose testing, normal heel to galarza testing, no pronator drift) Psychiatric: Normal Affect, Normal Mood Skin Exam: Warm, Dry, Normal Color Course - Vital Signs Last Recorded V/S: Last Vital Signs Temp 97.5 F 01/17/20 16:42 Pulse 79 01/17/20 16:42 Resp 20 01/17/20 16:42 BP 133/76 01/17/20 16:42 Pulse Ox 97 01/17/20 16:42 - Orders/Labs/Meds Meds: Medications Discontinued Medications Generic Name Dose Route Start Last Admin Trade Name Aletha PRN Reason Stop Dose Admin Diphenhydramine HCl 50 mg 01/17/20 16:49 01/17/20 17:12 Benadryl IM 01/17/20 16:50 50 mg ONETIME ONE Administration Diphenhydramine HCl Confirm 01/17/20 17:06 01/17/20 17:12 Benadryl Administered 01/17/20 17:07 Not Given Dose 50 mg .ROUTE .STK-MED ONE Ketorolac Tromethamine 60 mg 01/17/20 16:49 01/17/20 17:12 Toradol IM 01/17/20 16:50 60 mg ONETIME ONE Administration Ketorolac Tromethamine Confirm 01/17/20 17:06 01/17/20 17:12 Toradol Administered 01/17/20 17:07 Not Given Dose 60 mg .ROUTE .STK-MED ONE Ondansetron HCl 8 mg 01/17/20 16:49 01/17/20 17:09 Zofran Odt PO 01/17/20 16:50 8 mg ONETIME ONE Administration - Re-Assessments/Exams Free Text/Narrative Re-Assessment/Exam: 01/17/20 17:49 Checked on the patient, she is doing well. Reports her headache is improved, states it is a 3/10. Feels comfortable going home at this point. Discharge instructions as documented. Departure - Departure Time of Disposition: 17:50 Disposition: Home, Self-Care 01 Condition: Good Clinical Impression: Headache - Discharge Information *PRESCRIPTION DRUG MONITORING PROGRAM REVIEWED*: No *COPY OF PRESCRIPTION DRUG MONITORING REPORT IN PATIENT SUNNY: No Referrals: Cyndie Jones MD [Primary Care Provider] - Forms: ED Department Discharge, ED Return to Work/School Form Additional Instructions: Go home and rest in a dark quiet room. Make sure you are drinking plenty of fluids. OTC tylenol or motrin as needed for discomfort. Follow-up with your PCP as needed. Please return to the ER if your symptoms change or worsen. Sepsis Event Note - Evaluation Sepsis Screening Result: No Definite Risk - Focused Exam Vital Signs: Vital Signs Temp Pulse Resp BP Pulse Ox 01/17/20 16:42 97.5 F 79 20 133/76 97 Date Exam was Performed: 01/17/20 Time Exam was Performed: 17:52
== END 2020-01-17 18:26 | disposition home or self-care (01) ==
LOC: JD.ED 16:28
DX: R51 Headache (principal); E11.42 Type 2 diabetes mellitus with diabetic polyneuropathy; G35 Multiple sclerosis; E78.00 Pure hypercholesterolemia, unspecified; I10 Essential (primary) hypertension; J45.909 Unspecified asthma, uncomplicated; F32.9 Major depressive disorder, single episode, unspecified; Z68.31 Body mass index [BMI] 31.0-31.9, adult; Z79.4 Long term (current) use of insulin; Z79.899 Other long term (current) drug therapy
CPT/HCPCS: 96372; 99283; A9270; J1200; J1885

== ENCOUNTER 2020-03-13 17:50 | Emergency (ER) | payer MEDICAID ==
--- NOTE | 2020-03-13 19:21 | EDM.PDOC ---
ED HPI GENERAL MEDICAL PROBLEM - General Chief Complaint: Skin Complaint Stated Complaint: PAIN/NUMBNESS BOTH HANDS Time Seen by Provider: 03/13/20 19:05 Source of Information: Reports: Patient History Limitations: Reports: No Limitations - History of Present Illness INITIAL COMMENTS - FREE TEXT/NARRATIVE: This is a 49-year-old female. Over the last month she has been having progressive swelling in her fingers and hands. It has gotten to the point where now she has a hard time making a fist and she complains of swelling and burning in her fingers. She does a lot of hand work and a lot of gripping with her right hand and she does have pain in her right thumb for the last 3 weeks. Because of her inability to hold things with her hands due to the swelling and the tenderness she comes to the ER for evaluation because her workplace wanted to know why she could not work. She is an insulin-dependent diabetic she does have peripheral neuropathy in her feet but she is not known to have peripheral nerve or neuropathy in her hands at this point. She has been wearing some compression gloves when not working on her hands for the last month or so but that does not seem to have stopped the progression of her swelling. She denies any new soaps detergents chemicals that she has been exposed to with her hands. Bilateral Hand Pain Score (Numeric/FACES): 5 - Related Data Allergies Allergy/AdvReac Type Severity Reaction Status Date / Time acetaminophen [From Vicodin] Allergy Chest Pain Verified 03/13/20 18:16 hydrocodone [From Vicodin] Allergy Chest Pain Verified 03/13/20 18:16 Home Meds: Home Meds Gabapentin [Neurontin] 300 mg PO TID 05/02/19 [History] Insulin Glarg,Human.Rec.Analog [Lantus] 20 unit SUBCUT BEDTIME 05/02/19 [History ] Orphenadrine [Norflex] 100 mg PO BID PRN #20 tab 05/02/19 [Rx] atorvaSTATin [Lipitor] 10 mg PO BEDTIME 05/02/19 [History] metFORMIN [Glucophage XR] 500 mg PO BIDMEALS 05/02/19 [History] Albuterol Sulfate [Albuterol Sulfate Hfa] 1 inh INH DAILY 07/29/19 [History] Dapagliflozin Propanediol [Farxiga] 10 mg PO DAILY 07/29/19 [History] Losartan [Cozaar] 100 mg PO DAILY 07/29/19 [History] amLODIPine [Norvasc] 5 mg PO DAILY 07/29/19 [History] Albuterol/Ipratropium [DuoNeb 3.0-0.5 MG/3 ML] 3 ml INH QID #1 box 11/21/19 [Rx] Naproxen [Naprosyn] 500 mg PO Q12HR PRN #30 tab 12/19/19 [Rx] Empagliflozin [Jardiance] 25 mg PO DAILY 01/17/20 [History] Past Medical History HEENT History: Reports: Impaired Vision Cardiovascular History: Reports: High Cholesterol, Hypertension 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: Reports: Asthma Genitourinary History: Reports: Renal Calculus 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 Musculoskeletal History: Reports: Fibromyalgia Neurological History: Reports: MS, Neuropathy, Peripheral Psychiatric History: Reports: Depression Endocrine/Metabolic History: Reports: Diabetes, Type II, Obesity/BMI 30+ Hematologic History: Reports: None Immunologic History: Reports: None Oncologic (Cancer) History: Reports: None Dermatologic History: Reports: None - Infectious Disease History Infectious Disease History: Reports: Chicken Pox, Shingles - Past Surgical History Head Surgeries/Procedures: Reports: None HEENT Surgical History: Reports: Tonsillectomy GI Surgical History: Reports: Appendectomy, Cholecystectomy Female Surgical History: Reports: Other (See Below) Other Female Surgeries/Procedures: uterine ablasion Other Musculoskeletal Surgeries/Procedures:: Pt had right toenail removed. Social & Family History - Family History Family Medical History: Noncontributory - Tobacco Use Smoking Status *Q: Current Every Day Smoker Years of Tobacco use: 40 Packs/Tins Daily: 0.5 - Caffeine Use Caffeine Use: Reports: Coffee - Recreational Drug Use Recreational Drug Use: No ED ROS GENERAL - Review of Systems Review Of Systems: See Below Constitutional: Denies: Fever, Chills HEENT: Reports: No Symptoms Respiratory: Reports: No Symptoms Cardiovascular: Reports: No Symptoms Endocrine: Reports: No Symptoms GI/Abdominal: Reports: No Symptoms : Reports: No Symptoms Musculoskeletal: Reports: Other (Hand pain) Skin: Reports: Other (swelling of hands) Neurological: Reports: Tingling, Weakness, Other (Feet have peripheral neuropathy) Psychiatric: Reports: No Symptoms Hematologic/Lymphatic: Reports: No Symptoms ED EXAM, SKIN/RASH Exam: See Below Exam Limited By: No Limitations General Appearance: Alert, WD/WN, No Apparent Distress Eye Exam: Bilateral Eye: Normal Inspection Ears: Normal External Exam Nose: Normal Inspection Throat/Mouth: Normal Lips, Normal Voice, No Airway Compromise Head: Normocephalic Neck: Supple Respiratory/Chest: No Respiratory Distress Back Exam: Full Range of Motion Extremities: Other (Her hands do not appear to be especially swollen or tight, she does have a difficult time making a full fist however with both her hands. She does have flushed palms but not redness on the dorsal hands and fingers, her right thumb is very tender especially along the thenar prominence and the tendons that flex the thumb. Planes of numbness and tingling in her fingers and yet she does have feeling to each of the digits on both her hands. Not appear to have any wrist or forearm or shoulder problems bilaterally.) Neurological: Alert, Oriented Psychiatric: Normal Affect, Normal Mood Skin: Warm, Dry Course - Vital Signs Last Recorded V/S: Last Vital Signs Temp 98.1 F 03/13/20 18:14 Pulse 90 03/13/20 18:14 Resp 16 03/13/20 18:14 BP Pulse Ox 99 03/13/20 18:14 - Orders/Labs/Meds Labs: Laboratory Tests 03/13/20 03/13/20 Range/Units 19:28 19:28 WBC 11.27 H (3.98-10.04) K/mm3 RBC 5.12 (3.98-5.22) M/mm3 Hgb 14.5 D (11.2-15.7) gm/dl Hct 43.5 (34.1-44.9) % MCV 85.0 (79.4-94.8) fl MCH 28.3 (25.6-32.2) pg MCHC 33.3 (32.2-35.5) g/dl RDW Std Deviation 41.9 (36.4-46.3) fL Plt Count 294 (182-369) K/mm3 MPV 10.7 (9.4-12.3) fl Neut % (Auto) 55.8 (34.0-71.1) % Lymph % (Auto) 34.9 (19.3-51.7) % [place] % (Auto) 5.9 (4.7-12.5) % Eos % (Auto) 2.8 (0.7-5.8) Baso % (Auto) 0.3 (0.1-1.2) % Neut # (Auto) 6.29 H (1.56-6.13) K/mm3 Lymph # (Auto) 3.93 H (1.18-3.74) K/mm3 [place] # (Auto) 0.67 H (0.24-0.36) K/mm3 Eos # (Auto) 0.32 (0.04-0.36) K/mm3 Baso # (Auto) 0.03 (0.01-0.08) K/mm3 Manual Slide Review Normal smear Sodium 145 (136-145) mEq/L Potassium 3.4 L (3.5-5.1) mEq/L Chloride 108 H (98-107) mEq/L Carbon Dioxide 27 (21-32) mEq/L Anion Gap 13.4 (5-15) BUN 10 (7-18) mg/dL Creatinine 0.9 (0.55-1.02) mg/dL Est Cr Clr Drug Dosing 55.80 mL/min Estimated GFR (MDRD) > 60 (>60) mL/min BUN/Creatinine Ratio 11.1 L (14-18) Glucose 219 H (74-106) mg/dL Calcium 10.4 H (8.5-10.1) mg/dL Total Bilirubin 0.3 (0.2-1.0) mg/dL AST 12 L (15-37) U/L ALT 26 (14-59) U/L Alkaline Phosphatase 134 H (46-116) U/L C-Reactive Protein 0.6 (<1.0) mg/dL Total Protein 6.4 (6.4-8.2) g/dl Albumin 3.5 (3.4-5.0) g/dl Globulin 2.9 gm/dL Albumin/Globulin Ratio 1.2 (1-2) - Re-Assessments/Exams Free Text/Narrative Re-Assessment/Exam: 03/13/20 20:45 Spoke to the patient regarding her test results and the C-reactive protein being essentially normal her blood sugar is elevated at 219 I encouraged her to keep better track of her blood sugars. She is to follow-up with her family doctor this week for recheck because of the swelling and the burning sensation in her hands bilaterally. I do not believe she has a diabetic stiff hand syndrome that occurs rarely but she needs follow-up to make certain she is doing better. Departure - Departure Time of Disposition: 20:47 Disposition: Home, Self-Care 01 Condition: Fair Clinical Impression: Bilateral hand swelling, Paresthesia of both hands, Tendonitis of right hand, Insulin dependent type 2 diabetes mellitus, Elevated blood sugar - Discharge Information *PRESCRIPTION DRUG MONITORING PROGRAM REVIEWED*: Not Applicable *COPY OF PRESCRIPTION DRUG MONITORING REPORT IN PATIENT SUNNY: Not Applicable Instructions: Paresthesia, [id number] Referrals: Cyndie Jones MD [Physician] - Forms: ED Department Discharge, ED Return to Work/School Form Additional Instructions: Continue to monitor your blood sugars and take your medications, use your compression gloves at home and consider taking some naproxen or Aleve or ibuprofen to help with the swelling it will also help with the soreness but once the skin swelling goes down that burning sensation normally will go away, I do not believe you are developing a neuropathy but you need to follow-up with your family doctor for further evaluation, return to the ER if needed Sepsis Event Note - Evaluation Sepsis Screening Result: No Definite Risk - Focused Exam Vital Signs: Vital Signs Temp Pulse Resp Pulse Ox 03/13/20 18:14 98.1 F 90 16 99 Date Exam was Performed: 03/13/20 Time Exam was Performed: 20:45
== END 2020-03-13 21:05 | disposition home or self-care (01) ==
LOC: JD.ED 17:50
DX: M77.9 Enthesopathy, unspecified (principal); R20.2 Paresthesia of skin; E78.00 Pure hypercholesterolemia, unspecified; I10 Essential (primary) hypertension; J45.909 Unspecified asthma, uncomplicated; E11.42 Type 2 diabetes mellitus with diabetic polyneuropathy; E66.9 Obesity, unspecified; Z68.32 Body mass index [BMI] 32.0-32.9, adult; F32.9 Major depressive disorder, single episode, unspecified; Z79.899 Other long term (current) drug therapy; Z88.5 Allergy status to narcotic agent; Z88.6 Allergy status to analgesic agent; Z79.4 Long term (current) use of insulin
CPT/HCPCS: 36415; 80053; 85025; 86140; 99283

== ENCOUNTER 2020-10-22 18:10 | Emergency (ER) | payer MEDICAID ==
[2020-10-22] MEDS ORDERED: Ondansetron 4 MG/2 ML SDV IVPUSH ONE (18:51)
[2020-10-22] MEDS ORDERED: Sodium Chloride 0.9% 10 ML Syringe FLUSH PRN (18:52)
[2020-10-22] MEDS ORDERED: HYDROmorphone 1 MG/ML Syringe IVPUSH ONE (18:58)
[2020-10-22] MEDS ORDERED: Sodium Chloride 0.9% 1,000 ML IV SCH (19:00)
--- NOTE | 2020-10-22 19:05 | EDM.PDOC ---
ED HPI GENERAL MEDICAL PROBLEM - General Chief Complaint: Flank Pain Stated Complaint: FLANK PAIN Time Seen by Provider: 10/22/20 18:51 Source of Information: Reports: Patient, RN Notes Reviewed History Limitations: Reports: No Limitations - History of Present Illness INITIAL COMMENTS - FREE TEXT/NARRATIVE: Patient is a 49-year-old female who presents to the ED for the evaluation of her right-sided flank pain. The patient notes she does have a history of kidney stones, and states that the last 3 stones have been roughly 10 to 12 mm in size. She did have to have a surgical procedure to have them removed and placed on antibiotic. She notes that she has been having ongoing pain in her right flank for a few days, but the pain today has become constant. She does not have an active urologist in the area, she notes that she moved here only roughly a year ago. She has not taken anything at home for the pain control. She denies any urinary symptoms like blood in the urine, frequency or urgency. She is a diabetic that does require continuous glucose monitoring with insulin. She has had no fevers, chills, cough, shortness of breath, nausea/vomiting/diarrhea. Right Flank Pain Score (Numeric/FACES): 9 - Related Data Allergies Allergy/AdvReac Type Severity Reaction Status Date / Time bee venom protein (honey bee) Allergy Severe Anaphylactic Verified 10/22/20 18:38 Shock chlorhexidine Allergy Severe Burning to Verified 10/22/20 18:38 skin hydrocodone [From Vicodin] Allergy Severe Chest Pain Verified 10/22/20 18:38 trazodone Allergy Severe Itching Verified 10/22/20 18:38 Home Meds: Home Meds Insulin Glarg,Human.Rec.Analog [Lantus] 36 unit SUBCUT DAILY 05/02/19 [History] metFORMIN [Glucophage XR] 500 mg PO BIDMEALS 05/02/19 [History] Albuterol Sulfate [Albuterol Sulfate Hfa] 1 inh INH DAILY 07/29/19 [History] Dapagliflozin Propanediol [Farxiga] 10 mg PO DAILY 07/29/19 [History] Insulin Glarg,Human.Rec.Analog [Lantus] 30 mg PO BEDTIME 10/22/20 [History] Ondansetron [Zofran ODT] 4 mg PO Q8H PRN #15 tab.dis 10/22/20 [Rx] oxyCODONE HCl/Acetaminophen [Oxycodone-Acetaminophen 5-325] 1 each PO Q6H PRN #20 tablet 10/22/20 [Rx] Past Medical History HEENT History: Reports: Impaired Vision Cardiovascular History: Reports: High Cholesterol, Hypertension 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: Reports: Asthma Genitourinary History: Reports: Renal Calculus Musculoskeletal History: Reports: Fibromyalgia Neurological History: Reports: MS, Neuropathy, Peripheral Psychiatric History: Reports: Depression Endocrine/Metabolic History: Reports: Diabetes, Type II, Obesity/BMI 30+ - Infectious Disease History Infectious Disease History: Reports: Chicken Pox, Shingles - Past Surgical History HEENT Surgical History: Reports: Tonsillectomy GI Surgical History: Reports: Appendectomy, Cholecystectomy Female Surgical History: Reports: Other (See Below) Other Female Surgeries/Procedures: uterine ablation Musculoskeletal Surgical History: Reports: Other (See Below) Other Musculoskeletal Surgeries/Procedures:: Pt had right toenail removed. Social & Family History - Family History Family Medical History: No Pertinent Family History - Tobacco Use Tobacco Use Status *Q: Current Every Day Tobacco User Years of Tobacco use: 30 Packs/Tins Daily: 0.2 - Caffeine Use Caffeine Use: Reports: Coffee - Recreational Drug Use Recreational Drug Use: No ED ROS GENERAL - Review of Systems Review Of Systems: Comprehensive ROS is negative, except as noted in HPI. ED EXAM, RENAL/ - Physical Exam Exam: See Below Exam Limited By: No Limitations General Appearance: Alert, WD/WN, No Apparent Distress Respiratory/Chest: No Respiratory Distress, Lungs Clear, Normal Breath Sounds, No Accessory Muscle Use, Chest Non-Tender Cardiovascular: Normal Peripheral Pulses, Regular Rate, Rhythm, No Edema, No Murmur GI/Abdominal: Normal Bowel Sounds, Soft, Non-Tender, No Distention, No Mass Back Exam: Normal Inspection, CVA Tenderness (R). No: Muscle Spasm Extremities: Normal Inspection, Normal Capillary Refill Neurological: Alert, Oriented, Normal Cognition, No Motor/Sensory Deficits Psychiatric: Normal Affect, Normal Mood Skin Exam: Warm, Dry, Intact, Normal Color, No Rash Course - Vital Signs Last Recorded V/S: Last Vital Signs Temp 97.3 F 10/22/20 18:47 Pulse 77 10/22/20 18:47 Resp 20 10/22/20 18:47 BP 156/116 H 10/22/20 18:47 Pulse Ox 100 10/22/20 18:47 - Orders/Labs/Meds Orders: Active Orders 24 hr Category Date Time Status Peripheral IV Care [RC] . DIRECTED Care 10/22/20 18:52 Ordered Strain Urine [RC] ASDIRECTED Care 10/22/20 18:51 Ordered Abdomen Pelvis wo Cont [CT] Stat Exams 10/22/20 18:51 Ordered Sodium Chloride 0.9% @ 150 MLS/HR (1000ml Bag) Med 10/22/20 19:00 Ordered Sodium Chloride 0.9% [Normal Saline] 1,000 ml IV ASDIRECTED Sodium Chloride 0.9% [Saline Flush] Med 10/22/20 18:52 Ordered 10 ml FLUSH ASDIRECTED PRN Peripheral IV Insertion Adult [OM.PC] Routine Oth 10/22/20 18:52 Ordered Medication Orders Sodium Chloride (Normal Saline) 1,000 mls @ 150 mls/hr IV ASDIRECTED ANY Last Admin: 10/22/20 19:11 Dose: 150 mls/hr Documented by: JAMARI Sodium Chloride (Saline Flush) 10 ml FLUSH ASDIRECTED PRN PRN Reason: Keep Vein Open Last Admin: 10/22/20 19:17 Dose: 10 ml Documented by: JAMARI Labs: Laboratory Tests 10/22/20 10/22/20 10/22/20 Range/Units 18:45 18:45 18:45 WBC 13.59 H (3.98-10.04) K/mm3 RBC 6.10 H (3.98-5.22) M/mm3 Hgb 16.9 H (11.2-15.7) gm/dl Hct 51.8 H (34.1-44.9) % MCV 84.9 (79.4-94.8) fl MCH 27.7 (25.6-32.2) pg MCHC 32.6 (32.2-35.5) g/dl RDW Std Deviation 44.0 (36.4-46.3) fL Plt Count 344 (182-369) K/mm3 MPV 10.6 (9.4-12.3) fl Neut % (Auto) 60.3 (34.0-71.1) % Lymph % (Auto) 31.8 (19.3-51.7) % [place] % (Auto) 5.7 (4.7-12.5) % Eos % (Auto) 1.5 (0.7-5.8) Baso % (Auto) 0.4 (0.1-1.2) % Neut # (Auto) 8.21 H (1.56-6.13) K/mm3 Lymph # (Auto) 4.32 H (1.18-3.74) K/mm3 [place] # (Auto) 0.77 H (0.24-0.36) K/mm3 Eos # (Auto) 0.20 (0.04-0.36) K/mm3 Baso # (Auto) 0.05 (0.01-0.08) K/mm3 Manual Slide Review Abnormal smear Sodium 137 (136-145) mEq/L Potassium 3.9 (3.5-5.1) mEq/L Chloride 100 (98-107) mEq/L Carbon Dioxide 26 (21-32) mEq/L Anion Gap 14.9 (5-15) BUN 16 (7-18) mg/dL Creatinine 0.8 (0.55-1.02) mg/dL Est Cr Clr Drug Dosing 62.78 mL/min Estimated GFR (MDRD) > 60 (>60) mL/min BUN/Creatinine Ratio 20.0 H (14-18) Glucose 115 H (74-106) mg/dL Calcium 10.4 H (8.5-10.1) mg/dL Total Bilirubin 0.4 (0.2-1.0) mg/dL AST 25 (15-37) U/L ALT 43 (14-59) U/L Alkaline Phosphatase 143 H (46-116) U/L Total Protein 7.9 (6.4-8.2) g/dl Albumin 4.1 (3.4-5.0) g/dl Globulin 3.8 gm/dL Albumin/Globulin Ratio 1.1 (1-2) Urine Color Yellow (Yellow) Urine Appearance Clear (Clear) Urine pH 7.0 (5.0-8.0) Ur Specific [place] 1.015 (1.005-1.030) Urine Protein Negative (Negative) Urine Glucose (UA) 2+ H (Negative) Urine Ketones Negative (Negative) Urine Occult Blood Trace-lysed H (Negative) Urine Nitrite Negative (Negative) Urine Bilirubin Negative (Negative) Urine Urobilinogen 0.2 (0.2-1.0) Ur Leukocyte Esterase Trace H (Negative) Urine RBC 0-5 (0-5) /hpf Urine WBC 0-5 (0-5) /hpf Ur Squamous Epith Cells 5-10 H (0-5) /hpf Urine Bacteria Few (FEW) /hpf Urine Mucus Few (FEW) /hpf Meds: Medications Generic Name Dose Route Start Last Admin Trade Name Freq PRN Reason Stop Dose Admin Sodium Chloride 1,000 mls @ 150 mls/hr 10/22/20 19:00 10/22/20 19:11 Normal Saline IV 150 mls/hr ASDIRECTED ANY Administration Sodium Chloride 10 ml 10/22/20 18:52 10/22/20 19:17 Saline Flush FLUSH 10 ml ASDIRECTED PRN Administration Keep Vein Open Discontinued Medications Generic Name Dose Route Start Last Admin Trade Name Freq PRN Reason Stop Dose Admin Hydromorphone HCl 1 mg 10/22/20 18:58 10/22/20 19:14 Dilaudid IVPUSH 10/22/20 18:59 1 mg ONETIME ONE Administration Metoclopramide HCl 10 mg 10/22/20 20:32 10/22/20 20:37 Reglan IVPUSH 10/22/20 20:33 10 mg ONETIME ONE Administration Ondansetron HCl 4 mg 10/22/20 18:51 10/22/20 19:12 Zofran IVPUSH 10/22/20 18:52 4 mg ONETIME ONE Administration - Re-Assessments/Exams Free Text/Narrative Re-Assessment/Exam: 10/22/20 19:04 Patient presents to the ED for the evaluation of her right flank pain. I do highly suspect a kidney stone in nature. We will get a CT, give her some IV fluids, pain medications, nausea medications, and re-evaluate when we know some more. 10/22/20 20:48 The patient's laboratory evaluation demonstrates a mildly elevated white count, but I do believe this is attributed to a stress response. Metabolic panel is essentially unremarkable, and urine does not look infected at this time. CT demonstrates no evidence of ureteral stone at this time. There was a 2.5 cm exophytic soft tissue nodule on the left kidney, they do state that further work-up may be indicated. At this time I do not have a great explanation as to what is causing her abdomen pain and nausea. We will try to get her home with conservative measures, and give her a stool softener or laxative to try to debulk the bowel. Departure - Departure Time of Disposition: 21:22 Disposition: Home, Self-Care 01 Condition: Good Clinical Impression: Acute right flank pain, Nausea - Discharge Information *PRESCRIPTION DRUG MONITORING PROGRAM REVIEWED*: Yes *COPY OF PRESCRIPTION DRUG MONITORING REPORT IN PATIENT SUNNY: No Instructions: Nausea and Vomiting, Adult, [id number] Referrals: Cyndie Jones MD [Primary Care Provider] - Forms: ED Department Discharge Additional Instructions: You were evaluated in the ER today for your right-sided flank pain. Laboratory evaluation demonstrated no focal abnormalities. Your white count was mildly elevated, but this is likely due to a stress reaction due to the pain you are experiencing. You were given some IV medications for nausea and pain, this seemed to help relieve some of your symptoms. Your CT demonstrated no sign of a kidney stone or ureteral stone that should be causing your pain, however there was a exophytic soft tissue nodule on your left kidney that measures 2.5 cm in diameter, I would recommend that you follow-up with your primary care provider, for possible renal ultrasound/biopsy if it is deemed warranted. If you do not have a primary care provider already, I recommend that you follow- up with a provider in our clinic, any family practice provider would be able to provide you with the services. Our clinic telephone number [phone], please call Sunday morning to obtain an appointment with the provider, for follow-up of your symptoms that prompted your ER visit today. You were given a prescription for a strong pain medication, oxycodone/acetaminophen 5/325 mg, please take 1 tab every 6 hours as needed for pain not relieved by Tylenol or ibuprofen alone. Please note this medication does contain Tylenol in it, so do not take more than 4000 mg in a 24-hour time span. These medications can be addictive, so please take as few as possible to achieve adequate pain control. These meds can also be quite constipating, recommend that you increase your oral fluid intake and take a stool softener like MiraLAX while taking these medications. Do not drive while taking this medication. You were given a prescription for Zofran as well, 1 tablet dissolvable under your tongue every 8 hours as needed for further nausea. Please return to the ER at any time if your symptoms change or worsen. Sepsis Event Note (ED) - Evaluation Sepsis Screening Result: No Definite Risk - Focused Exam Vital Signs: Vital Signs Temp Pulse Resp BP Pulse Ox 10/22/20 18:47 97.3 F 77 20 156/116 H 100 - My Orders Last 24 Hours: My Active Orders 10/22/20 18:51 Strain Urine [RC] ASDIRECTED Abdomen Pelvis wo Cont [CT] Stat 10/22/20 18:52 Peripheral IV Care [RC] . DIRECTED Sodium Chloride 0.9% [Saline Flush] 10 ml FLUSH ASDIRECTED PRN Peripheral IV Insertion Adult [OM.PC] Routine 10/22/20 19:00 Sodium Chloride 0.9% @ 150 MLS/HR (1000ml Bag) Sodium Chloride 0.9% [Normal Saline] 1,000 ml IV ASDIRECTED - Assessment/Plan Last 24 Hours: My Active Orders 10/22/20 18:51 Strain Urine [RC] ASDIRECTED Abdomen Pelvis wo Cont [CT] Stat 10/22/20 18:52 Peripheral IV Care [RC] . DIRECTED Sodium Chloride 0.9% [Saline Flush] 10 ml FLUSH ASDIRECTED PRN Peripheral IV Insertion Adult [OM.PC] Routine 10/22/20 19:00 Sodium Chloride 0.9% @ 150 MLS/HR (1000ml Bag) Sodium Chloride 0.9% [Normal Saline] 1,000 ml IV ASDIRECTED
[2020-10-22] MEDS ORDERED: Metoclopramide 10 MG/2 ML SDV IVPUSH ONE (20:32)
--- NOTE | 2020-10-23 10:24 | CT ---
CT abdomen and pelvis Technique: Multiple axial sections were obtained from above the dome of the diaphragm inferiorly through the pubic symphysis. Intravenous and oral contrast were not utilized. Reconstructed coronal and sagittal images were obtained. Comparison: No previous abdominal imaging is available. Findings: Visualized lung bases: Visualized lung bases show nothing acute. Liver and spleen: No discrete abnormality is seen. Surgical clips are noted from prior cholecystectomy. Adrenal glands: Very small nodule is noted within the left adrenal gland. This is most likely due to minimal adenoma. Kidneys: Hyperdense lesion is seen off the left kidney. This abnormality measures approximately 2.6 cm. Two small calcifications are seen within the right kidney most likely representing minimal nonobstructing calculi. No ureteral dilatation or ureteral stone is seen. Pancreas: Within normal limits for noncontrast study. Aorta, retroperitoneum and mesenteric: Aorta shows mild atherosclerotic calcification. No aneurysm is seen. No retroperitoneal adenopathy or mesenteric abnormalities are seen. Pelvis: Pelvis shows no abnormality. No free fluid or inflammatory change is appreciated. Appendix: Appendix is not visualized. Osseous: Minimal scattered endplate osteophytes are noted within the spine. No acute osseous finding is seen. Impression: 1. 2.6 cm hyperdense lesion within the left kidney. This finding is most likely due to a hemorrhagic cyst, however MRI study without and with contrast could be considered to confirm. 2. Two small nonobstructing calculi within the right kidney. No ureteral dilatation or ureteral stone is seen. 3. Other nonacute findings as noted above. 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
== END 2020-10-22 21:34 | disposition home or self-care (01) ==
LOC: JD.ED 18:10
DX: R10.9 Unspecified abdominal pain (principal); R11.0 Nausea; I10 Essential (primary) hypertension; J45.909 Unspecified asthma, uncomplicated; E11.42 Type 2 diabetes mellitus with diabetic polyneuropathy; E66.9 Obesity, unspecified; F17.210 Nicotine dependence, cigarettes, uncomplicated; Z68.32 Body mass index [BMI] 32.0-32.9, adult; G35 Multiple sclerosis; Z91.030 Bee allergy status; Z88.8 Allergy status to other drugs, medicaments and biological substances; Z88.5 Allergy status to narcotic agent; Z79.4 Long term (current) use of insulin
CPT/HCPCS: 36415; 74176; 74176-26; 80053; 81001; 85025; 96374; 96375; 99284; 99284-25; J1170; J2405; J2765; J7030